=== PATIENT | male | born 1970 | race African-American/Black ===

== ENCOUNTER 2016-08-16 05:44 | Emergency (ER) | payer BC, OTHER ==
[2016-08-16 04:53] LABS: BASOPHILS 0.8 %; BASOPHILS ABSOLUTE 0.07 10/3/uL (0.0-0.16); EOSINOPHILS 0.4 %; EOSINOPHILS ABSOLUTE 0.03 10/3/uL (0.0-0.53); HEMATOCRIT 41.9 % (40.0-51.0); HEMOGLOBIN 13.7 g/dL (13.6-17.8); IMMATURE GRANULOCYTES 0.2 %; IMMATURE GRANULOCYTES ABSOLUTE 0.02 10/3/uL (0.0-0.11); LYMPHOCYTES 25.5 %; LYMPHOCYTES ABSOLUTE 2.16 10/3/uL (0.67-4.30); MEAN CORPUS HGB CONC 32.7 g/dL (32.0-36.0); MEAN CORPUSCULAR HEMOGLOB 32.2 pg (26.0-34.0); MEAN CORPUSCULAR VOLUME 98.4 fL (80-100); MEAN PLATELET VOLUME 8.3 fL (9.2-13.0); MONOCYTES 7.1 %; PLATELET COUNT 432 10/3/uL (150-400); RBC DISTRIBUTION WIDTH 13.8 % (12.0-16.0); RED CELL COUNT 4.26 10/6/uL (4.7-6.1); WHITE BLOOD CELLS 8.5 10/3/uL (4.5-10.5)
[2016-08-16 04:54] LABS: MANUAL DIFF NO %
[2016-08-16 05:00] LABS: INTERNATIONAL NORMAL RATI 1.3 UNITS (-); PROTIME (NOT ORD) 15.8 SEC (12.0-14.5)
[2016-08-16 05:09] LABS: BUN (BLOOD UREA NITROGEN) 12 MG/DL (6-23); CALCIUM, SERUM 8.7 MG/DL (8.5-10.4); CHLORIDE, SERUM 108 MMOL/L (96-112); CO2 (CARBON DIOXIDE) 28 MMOL/L (24-34); CREATININE 1.38 MG/DL (0.70-1.30); GFR AFRICAN AMERICAN 70 ML/MIN (>=60); GFR NON AFRICAN AMERICAN 60 ML/MIN (>=60); POTASSIUM, SERUM 3.9 MMOL/L (3.5-5.3); SODIUM, SERUM 142 MMOL/L (135-148)
[2016-08-16 05:10] LABS: CHEST PAIN PROFILE TAT 0 Hrs 21 Mins; GLUCOSE, SERUM 139 MG/DL (60-99); TROPONIN I 0.09 NG/ML (<0.05)
[~2016-08-16 05:44] MED LIST: ASAB PO; COREG12 PO; COREG6 PO; COZ25 PO; FLONASE NAS; IPRA17AE INH; KLOR-CON M2020 MEQ PO; L40 PO; LIPITOR20 PO; NORV25 PO; PRIN10 PO; UNKNOWN BP MED; ZESTRIL10 MG PO
[2016-08-16 07:03] LABS: AMPHETAMINES (NOT ORD) NEG (NEG); BARBITURATES (NOT ORDERED NEG (NEG); BENZODIAZEPINES (NOT ORD) NEG (NEG); CANNABINOIDS (THC) POS (NEG); COCAINE (NOT ORDERED) POS (NEG); OPIATES NEG (NEG); PHENCYCLIDINE(PCP) NEG (NEG); TRICYCLICS NEG (NEG)
== END 2016-08-16 07:13 | disposition home or self-care (01) ==
LOC: ER 05:44
PROVIDERS: Specialist
DX: F19.10 Other psychoactive substance abuse, uncomplicated (principal); R79.89 Other specified abnormal findings of blood chemistry; E87.79 Other fluid overload; I42.9 Cardiomyopathy, unspecified; Z91.14 Patient's other noncompliance with medication regimen; I10 Essential (primary) hypertension; I50.9 Heart failure, unspecified; Z79.82 Long term (current) use of aspirin; Z79.899 Other long term (current) drug therapy
CPT/HCPCS: 71020; 80048; 80305; 83735; 83880; 84484; 85025; 85610; 85730; 93005; 96374; 99285; A9270-GY; J1940

== ENCOUNTER 2016-12-09 10:22 | Emergency (ER) | payer BC | END 2016-12-09 12:23 | disposition home or self-care (01) | LOC: ER 10:22 | PROC: 0HQMXZZ Repair Right Foot Skin, External Approach (ICD-10-PCS; principal; 2016-12-09) | DX: S91.311A Laceration without foreign body, right foot, initial encounter (principal); I50.9 Heart failure, unspecified; Z79.899 Other long term (current) drug therapy; Z79.82 Long term (current) use of aspirin; W20.8XXA Other cause of strike by thrown, projected or falling object, initial encounter | CPT/HCPCS: 73630-RT; 90471; 90714; 99283 ==